=== PATIENT | male | born 1980 | race Caucasian/White ===

== ENCOUNTER 2018-02-06 00:17 | Emergency (ER) | payer BC ==
--- NOTE | 2018-02-06 00:40 | ED ---
General Adult HPI - General Source: patient Mode of arrival: ambulatory Limitations: no limitations <Cale Pardo - Last Filed: 02/06/18 00:39> <Coleman Menchaca - Last Filed: 02/06/18 02:26> - General Chief complaint: Abdominal Pain Stated complaint: abd pain - History of Present Illness Initial comments: Dictation was produced using [employer] dictation software. please excuse any grammatical, word or spelling errors. Chief Complaint: 37-year-old male presents with left lower quadrant/ suprapubic pain. History of Present Illness: 37-year-old male presents with 2 days of left lower quadrant and suprapubic pain. Patient states he's been having change in bowel habits. He states that his stool is a lot softer than usual. He does report some constitutional symptoms. He states he has some chills. Since his pain is sharp and worse with palpation and located in the left lower quadrant/suprapubic area. Patient has a history of diverticulitis. No nausea vomiting. Denies any history of abdominal surgery. The ROS documented in this emergency department record has been reviewed and confirmed by me. Those systems with pertinent positive or negative responses have been documented in the HPI. All other systems are other negative and/or noncontributory. (Cale Pardo) - Related Data Previous Rx's Medication Instructions Recorded Ciprofloxacin HCl [Cipro] 500 mg PO Q12HR #14 tablet 02/06/18 metroNIDAZOLE [Flagyl] 500 mg PO TID #21 tab 02/06/18 Allergies Allergy/AdvReac Type Severity Reaction Status Date / Time No Known Allergies Allergy Verified 02/06/18 00:25 Review of Systems ROS Other: All systems not noted in ROS Statement are negative. <Cale Pardo - Last Filed: 02/06/18 00:39> ROS Other: All systems not noted in ROS Statement are negative. <Coleman Menchaca - Last Filed: 02/06/18 02:26> ROS Statement: Those systems with pertinent positive or pertinent negative responses have been documented in the HPI. Past Medical History Past Medical History: No Reported History History of Any Multi-Drug Resistant Organisms: None Reported Past Surgical History: No Surgical Hx Reported Past Psychological History: No Psychological Hx Reported Smoking Status: Current every day smoker Past Alcohol Use History: Occasional Past Drug Use History: None Reported <Cale Pardo - Last Filed: 02/06/18 00:39> General Exam Limitations: no limitations <Cale Pardo - Last Filed: 02/06/18 00:39> <Coleman Menchaca - Last Filed: 02/06/18 02:26> - General Exam Comments Initial Comments: PHYSICAL EXAM: General Impression: Alert and oriented x3, not in acute distress HEENT: Normocephalic atraumatic, extra-ocular movements intact, pupils equal and reactive to light bilaterally, mucous membranes moist. Cardiovascular: Heart regular rate and rhythm, S1&S2 audible, no murmurs, rubs or gallops Chest: Lungs clear to auscultation bilaterally, no rhonchi, no wheeze, no rales Abdomen: In the left lower quadrant worse with palpation Musculoskeletal: Pulses present and equal in all extremities, no peripheral edema Motor: Power 5/5 bilaterally, no focal deficits noted Neurological: CN II-XII grossly intact, no focal motor or sensory deficits noted Skin: Intact with no visualized rashes Psych: Normal affect and mood (Cale Pardo) Vital Signs 02/06/18 00:20 Temperature 97.9 F Pulse Rate 79 Respiratory 20 Rate Blood Pressure 130/82 O2 Sat by Pulse 99 Oximetry Medical Decision Making <Cale Pardo - Last Filed: 02/06/18 00:39> - Lab Data Result diagrams: 02/06/18 00:50 02/06/18 00:50 <Coleman Menchaca - Last Filed: 02/06/18 02:26> - Medical Decision Making ED course: 37-year-old male with no significant medical history presents with 2 days of left lower quadrant abdominal pain. There is clinical suspicion that his symptoms represent diverticulitis. He does have constitutional symptoms. As upon arrival are within acceptable limits. He is afebrile. Laboratory evaluation obtained and CT abdomen and pelvis were obtained. It was sent out to oncoming physician for follow-up of labs and imaging studies. (Cale Pardo) - Lab Data Lab Results 02/06/18 02/06/18 Range/Units 00:50 00:50 WBC 9.0 (3.8-10.6) k/uL RBC 5.27 (4.30-5.90) m/uL Hgb 15.0 (13.0-17.5) gm/dL Hct 45.0 (39.0-53.0) % MCV 85.5 (80.0-100.0) fL MCH 28.5 (25.0-35.0) pg MCHC 33.3 (31.0-37.0) g/dL RDW 12.6 (11.5-15.5) % Plt Count 226 (150-450) k/uL Neutrophils % 62 % Lymphocytes % 28 % Monocytes % 6 % Eosinophils % 2 % Basophils % 1 % Neutrophils # 5.5 (1.3-7.7) k/uL Lymphocytes # 2.5 (1.0-4.8) k/uL Monocytes # 0.5 (0-1.0) k/uL Eosinophils # 0.2 (0-0.7) k/uL Basophils # 0.1 (0-0.2) k/uL Sodium 140 (137-145) mmol/L Potassium 3.9 (3.5-5.1) mmol/L Chloride 106 (98-107) mmol/L Carbon Dioxide 24 (22-30) mmol/L Anion Gap 10 mmol/L BUN 18 (9-20) mg/dL Creatinine 0.79 (0.66-1.25) mg/dL Est GFR (CKD-EPI)AfAm >90 (>60 ml/min/1.73 sqM) Est GFR (CKD-EPI)NonAf >90 (>60 ml/min/1.73 sqM) Glucose 95 (74-99) mg/dL Calcium 9.7 (8.4-10.2) mg/dL Total Bilirubin 0.5 (0.2-1.3) mg/dL AST 25 (17-59) U/L ALT 32 (21-72) U/L Alkaline Phosphatase 85 (38-126) U/L Total Protein 7.4 (6.3-8.2) g/dL Albumin 4.4 (3.5-5.0) g/dL Lipase 257 (23-300) U/L Disposition <Cale Pardo - Last Filed: 02/06/18 00:39> Is patient prescribed a controlled substance at d/c from ED?: No <Coleman Menchaca - Last Filed: 02/06/18 02:26> Clinical Impression: Colitis Disposition: HOME SELF-CARE Condition: Good Instructions: Colitis (ED) Prescriptions: Ciprofloxacin HCl [Cipro] 500 mg PO Q12HR #14 tablet metroNIDAZOLE [Flagyl] 500 mg PO TID #21 tab Referrals: Ean Felder MD [STAFF PHYSICIAN] - 1-2 days
[2018-02-06 01:09] LABS: Basophils # (A) 0.1 k/uL (0-0.2); Basophils % (A) 1 %; Eosinophils # (A) 0.2 k/uL (0-0.7); Eosinophils % (A) 2 %; Lymphocytes # (A) 2.5 k/uL (1.0-4.8); Lymphocytes % (A) 28 %; MCH 28.5 pg (25.0-35.0); MCHC 33.3 g/dL (31.0-37.0); MCV 85.5 fL (80.0-100.0); Monocytes # (A) 0.5 k/uL (0-1.0); Monocytes % (A) 6 %; Neutrophils # (A) 5.5 k/uL (1.3-7.7); Neutrophils % (A) 62 %; Platelet Count 226 k/uL (150-450); RBC 5.27 m/uL (4.30-5.90); RDW 12.6 % (11.5-15.5)
[2018-02-06 01:18] LABS: ALT 32 U/L (21-72); AST 25 U/L (17-59); Albumin 4.4 g/dL (3.5-5.0); Alkaline Phosphatase 85 U/L (38-126); Anion Gap 10 mmol/L; Blood Urea Nitrogen 18 mg/dL (9-20); Calcium 9.7 mg/dL (8.4-10.2); Carbon Dioxide 24 mmol/L (22-30); Chloride 106 mmol/L (98-107); Glucose 95 mg/dL (74-99); Lipase 257 U/L (23-300); Potassium 3.9 mmol/L (3.5-5.1); Sodium 140 mmol/L (137-145); Total Bilirubin 0.5 mg/dL (0.2-1.3); Total Protein 7.4 g/dL (6.3-8.2)
--- NOTE | 2018-02-06 01:52 | CT ---
EXAMINATION TYPE: CT abdomen pelvis w con DATE OF EXAM: 02/06/2018 COMPARISON: None HISTORY: lower abdominal pain CT DLP: 1019.2 mGycm Automated exposure control for dose reduction was used. TECHNIQUE: Helical acquisition of images was performed from the lung bases through the pelvis. CONTRAST: Performed without Oral Contrast and with IV Contrast, patient injected with 100mL mL of Isovue 300. FINDINGS: Lung bases are clear. There is no pleural effusion. Heart appears normal. Liver spleen pancreas gallbladder appear normal. Bile ducts are not dilated. There is no adrenal mass . Kidneys show satisfactory contrast opacification. There is no hydronephrosis. Appendix measures 8 mm and shows no sign of inflammation. There is no retroperitoneal adenopathy. There is no inguinal hernia. Bladder distends smoothly. There are multiple small sigmoid diverticula. There is mild wall thickening of the mid descending colon. T here is no free fluid. There is no sign of free air. Lumbar spine appears intact. Bony pelvis appears normal. IMPRESSION: SIGMOID DIVERTICULOSIS. SLIGHT THICKENING OF THE DESCENDING COLON THAT COULD RELATE TO MILD COLITIS.
[2018-02-06] MEDS ORDERED: CIPROFLOXACIN HCL 500 MG TAB PO STA (02:24)
[2018-02-06] MEDS ORDERED: metroNIDAZOLE 500 MG TAB PO STA (02:24)
[2018-02-06 02:34] VITALS: BP 132/84; PULSE 74; RESP 18; TEMP 98.2
== END 2018-02-06 02:45 | disposition home or self-care (01) ==
LOC: EC 00:17
DX: K52.9 Noninfective gastroenteritis and colitis, unspecified (principal); F17.200 Nicotine dependence, unspecified, uncomplicated
CPT/HCPCS: 36415; 80053; 83690; 85025; 74177; 99284; Q9967

== ENCOUNTER 2019-03-20 15:40 | Emergency (ER) | payer BC, OTHER ==
[2019-03-20 15:50] VITALS: RESP 18
[2019-03-20] MEDS ORDERED: BUPIVACAIN-EPI 0.25%-1:200,000 30 ML VIAL SQ STA (16:25)
[2019-03-20] MEDS ORDERED: Acetaminophen-Codeine 300-30mg TAB PO STA (16:25)
--- NOTE | 2019-03-20 16:27 | ED ---
ENT HPI - General Source: EMS Mode of arrival: EMS Limitations: no limitations <Frank Stephenson - Last Filed: 03/20/19 17:20> <Kelly Lynn - Last Filed: 03/21/19 14:31> - General Chief complaint: Dental/Oral Stated complaint: Dental Pain Time Seen by Provider: 03/20/19 15:55 - History of Present Illness Initial comments: Patient is a 38-year-old male presenting to the emergency department with a chief complaint of dental pain. She days ago patient had a wisdom tooth removed on the left lower side. Patient reports he has been using the antibiotics, mouthwash as directed. Until yesterday when he developed a sudden onset of left lower jaw pain. She reports the pain is exacerbated when eating, talking. He denies any facial swelling, erythema, night sweats fevers or chills. Reports taking [id number] analgesics a minimal improvement. (Frank Stephenson) - Related Data Previous Rx's Medication Instructions Recorded Ciprofloxacin HCl [Cipro] 500 mg PO Q12HR #14 tablet 02/06/18 metroNIDAZOLE [Flagyl] 500 mg PO TID #21 tab 02/06/18 Allergies Allergy/AdvReac Type Severity Reaction Status Date / Time No Known Allergies Allergy Verified 02/06/18 00:25 Review of Systems ROS Other: All systems not noted in ROS Statement are negative. <Frank Stephenson - Last Filed: 03/20/19 17:20> ROS Other: All systems not noted in ROS Statement are negative. <Kelly Lynn - Last Filed: 03/21/19 14:31> ROS Statement: Those systems with pertinent positive or pertinent negative responses have been documented in the HPI. Past Medical History Past Medical History: No Reported History History of Any Multi-Drug Resistant Organisms: None Reported Past Surgical History: No Surgical Hx Reported Past Psychological History: No Psychological Hx Reported Smoking Status: Current every day smoker Past Alcohol Use History: Occasional Past Drug Use History: None Reported <Frank Stephenson - Last Filed: 03/20/19 17:20> General Exam Limitations: no limitations General appearance: alert, in no apparent distress Head exam: Present: atraumatic, normocephalic, normal inspection Eye exam: Present: normal appearance, PERRL, EOMI Pupils: Present: normal accommodation ENT exam: Present: normal exam, normal oropharynx (Tenderness along tooth #21. No oral lesions. No gumline erythema or periapical abscesses.), mucous membranes moist, TM's normal bilaterally, normal external ear exam Neck exam: Present: normal inspection, full ROM Respiratory exam: Present: normal lung sounds bilaterally Cardiovascular Exam: Present: regular rate, normal rhythm, normal heart sounds Extremities exam: Present: normal inspection, full ROM Back exam: Present: normal inspection, full ROM Neurological exam: Present: alert, oriented X3 Psychiatric exam: Present: normal affect, normal mood Skin exam: Present: warm, dry, intact, normal color <Frank Stephenson - Last Filed: 03/20/19 17:20> Course Vital Signs 03/20/19 03/20/19 15:48 17:41 Temperature 98.4 F 98.2 F Pulse Rate 68 64 Respiratory 18 18 Rate Blood Pressure 165/83 158/72 O2 Sat by Pulse 99 98 Oximetry Medical Decision Making <Frank Stephenson - Last Filed: 03/20/19 17:20> <Kelly Lynn - Last Filed: 03/21/19 14:31> - Medical Decision Making Patient is a 38-year-old male presenting to the emergency department with chief complaint of dental pain. Patient recently had a wisdom tooth removal. Now has pain along that side of the jaw. No facial swelling. No signs of periapical abscesses. No signs of erythema or infection along the gumline. Patient given a dental block using Marcaine. Patient reports significant improvement in his symptoms. Patient also given Tylenol 3 starter pack advised about the possible side effects of medication. Strict return parameters were thoroughly discussed with patient was standing agreeable. Patient vised follow primary care. Case discussed with physician. (Frank Stephenson) I was available for consultation in the emergency department. The history and physical exam were done by the midlevel provider. I was consulted for this patients care. I reviewed the case with the midlevel provider and based on their presentation of the patient, I agree with the assessment, medical decision making and plan of care as documented. Chart was dictated using [employer] dictation software. Attempts were made to co rrect any dictation errors however some typographical errors may persist. (Kelly Lynn) Disposition Is patient prescribed a controlled substance at d/c from ED?: No Time of Disposition: 17:21 <Frank Stephenson - Last Filed: 03/20/19 17:20> <Kelly Lynn - Last Filed: 03/21/19 14:31> Clinical Impression: Pain, dental Disposition: HOME SELF-CARE Condition: Stable Instructions (If sedation given, give patient instructions): Toothache (ED) Additional Instructions: Please follow with a dentist please return to emergency department if symptoms worsen. Alternate between Tylenol and ibuprofen for pain control. Referrals: None,Stated [Primary Care Provider] - 1-2 days
[2019-03-20] MEDS ORDERED: ACET/COD 300 MG/30 MG STARTER PACK 6 TAB BTL PO STA (17:19)
[2019-03-20 17:41] VITALS: BP 158/72; PULSE 64; TEMP 98.2
== END 2019-03-20 17:41 | disposition home or self-care (01) ==
LOC: EC 15:40
DX: K08.89 Other specified disorders of teeth and supporting structures (principal); F17.200 Nicotine dependence, unspecified, uncomplicated
CPT/HCPCS: 64400; 99283

== ENCOUNTER 2022-04-30 13:05 | Emergency (ER) | payer BC ==
[2022-04-30 13:12] VITALS: TEMP 97.8
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
--- NOTE | 2022-04-30 13:47 | XR ---
EXAMINATION TYPE: XR chest 2V DATE OF EXAM: 04/30/2022 1:35 PM COMPARISON: None TECHNIQUE: XR chest 2V Frontal and lateral views of the chest. CLINICAL INDICATION:Male, 42 years old with history of DAYSI; FINDINGS: Lungs/Pleura: Patchy right middle lobe airspace opacity. No pleural effusion or pneumothorax. Pulmonary vascularity: Unremarkable. Heart/mediastinum: Cardiomediastinal silhouette is unremarkable. Musculoskeletal: No acute osseous pathology. IMPRESSION: Patchy right middle lobe airspace opacity which may represent atelectasis versus infiltrate in the ap propriate clinical setting.
[2022-04-30 14:07] LABS: Basophils # (A) 0.1 k/uL (0-0.2); Basophils % (A) 1 %; Eosinophils # (A) 0.4 k/uL (0-0.7); Eosinophils % (A) 4 %; HCT 45.6 % (39.0-53.0); HGB 15.8 gm/dL (13.0-17.5); Lymphocytes # (A) 1.9 k/uL (1.0-4.8); Lymphocytes % (A) 20 %; MCH 29.5 pg (25.0-35.0); MCHC 34.7 g/dL (31.0-37.0); Mean Platelet Volume 7.8; Monocytes # (A) 0.5 k/uL (0-1.0); Monocytes % (A) 5 %; Neutrophils # (A) 6.8 k/uL (1.3-7.7); Neutrophils % (A) 70 %; Platelet Count 260 k/uL (150-450); RBC 5.36 m/uL (4.30-5.90); RDW 12.5 % (11.5-15.5); WBC 9.8 k/uL (3.8-10.6)
[2022-04-30 14:18] LABS: Partial Thromboplastin Time 27.8 sec (22.0-30.0); Prothrombin Time 10.6 sec (9.0-12.0)
[2022-04-30 14:25] LABS: Albumin 4.7 g/dL (3.5-5.0); Calcium 9.4 mg/dL (8.4-10.2); Magnesium 1.8 mg/dL (1.6-2.3); Potassium 4.3 mmol/L (3.5-5.1); Total Bilirubin 0.8 mg/dL (0.2-1.3); Total Protein 7.9 g/dL (6.3-8.2)
[2022-04-30 15:20] VITALS: BP 113/71; PULSE 66; RESP 20
== END 2022-04-30 15:05 | disposition home or self-care (01) ==
LOC: EC 13:05
DX: R09.1 Pleurisy (principal); F17.210 Nicotine dependence, cigarettes, uncomplicated
CPT/HCPCS: 36415; 71046; 80053; 83735; 84484; 85025; 85610; 85730; 93005; 99285